=== PATIENT | male | born 1940 | race Caucasian/White ===

== ENCOUNTER → 2023-12-16 09:49 | Outpatient (REF) | payer OTHER, SELFPAY | LOC: RCS 09:49 | PROVIDERS: ATTENDING PHYSICIAN Internal Medicine Cardiovascular Disease; FAMILY PHYSICIAN Family Medicine | DX: I48.3 Typical atrial flutter (principal) | CPT/HCPCS: 93306 ==

== ENCOUNTER 2024-01-16 05:40 | Inpatient (IN) | payer OTHER, SELFPAY ==
[2024-01-16] VITALS (17 sets, daily range): BP systolic 119–153; BP diastolic 52–74; BMI 23.9; BMI 22.6
--- NOTE | 2024-01-16 03:33 | ED.GENMED ---
History of Present Illness
General
Chief Complaint: Chest Pain
Source: patient
Exam Limitations: none
Time Seen by Provider: 01/16/24 03:15
Travel History
Have you had any contact with someone who has COVID-19?: No
Do you have any symptoms of coronavirus? Fever > 100 degrees, chills, cough, shortness of breath, sore throat, loss of taste or smell, muscle aches, or headache?: No
Symptoms:: chest pain
History of Present Illness
History of Present Illness:
84 YO M with a PMH of ablation x <10 years ago, HTN, and HLD that presents to the ED with complaints of left sided chest pain that awoke him from sleep at 1:30 a.m. He describes the pain as sharp. Pt was given ASA and Nitroglycerin on his way here.
He also mentioned he had Pepto-Bismol. His pain was originally a 10/10, and is now a 0-1/10. Pt reports associated radiation of pain to his upper back. Pt reports he just got back from a 4 hour car ride today. Recently had COVID 10 days ago per
nurse. Pt is on Eliquis.
Denies SOB, N,V, diarrhea, and diaphoresis. Denies calf pain. Denies overexerting himself in the last few days.
Past History
Past History
ED Past Medical History: GERD
ED Past Surgical History: Other (Nasal polypectomy )
Social History
Tobacco: Former smoker (Quit in the 1960s)
Alcohol: Occasional
Personal:
Living: with family
Family History
Family History: Negative Diabetes, Hypertension or CAD
Review of Systems
Review of Systems
Allergies reviewed?: Yes
Constitutional: Reports no symptoms
EENT: Reports no symptoms
Respiratory: Reports no symptoms
Cardiac: Reports chest pain
ABD/GI: Reports no symptoms
: Reports no symptoms
Skin: Reports no symptoms
Neurological: Reports no symptoms
Phy Exam
Physical Exam
Physical Exam:
Bradycardic, Normal S1 and S2
Breath sounds are clear and equal B/L
(-) Abdominal pain
General Physical Exam
General Presentation: well appearing
General age: appears stated age
General Skin: warm and dry
General Habitus: normal
General Mental: alert
General Hydration: appears well hydrated
Cardiovascular Exam
Cardiovascular Exam: regular rate/rhythm and bradycardia
Pulmonary Exam
Pulmonary Exam: lungs clear and no respiratory distress
Neurological Exam
Neurological Exam: alert and oriented x3
Scores
Heart Score for Chest Pain Patients
STEMI patient?: Not applicable
Course
Orders/Labs/Results
Orders:
Orders
01/16/24 03:14
Electrocardiogram (*1) Urgent
Reason for Study: Other
Other Reason for Exam: Respiratory Distress
Cardiac Monitoring- Treatment ONCE
EKG- Treatment ONCE
IV Insert/Care/Rem.- Treatment PRN
O2 Therapy [RESP] Urgent
Titrate/Wean O2 to maintain O2 sat greater than (%): 93
Special Instructions: TO MAINTAIN CONTINUOUS O2 SATS >/= 93%
Pulse Ox/cont/shift [RESP] Urgent
Quantity: 1
Special Instructions: continuous pulse ox
01/16/24 03:32
Complete Blood Count/With Diff Urgent
Comprehensive Metabolic Panel Urgent
NT-proBNP Urgent
PT/INR [Prothrombin Time] Urgent
Troponin I Urgent
01/16/24 03:56
CR Chest Portable - 1 View Urgent
Comment:
Reason For Exam: chest pain
Reason Study Needs to be Portable: Patient Unstable
If Reason is Other, explain: bradycardia
01/16/24 04:27
ECG [Electrocardiogram (*1)] Urgent
Reason for Study: Chest Pain
EKG- Treatment ONCE
01/16/24 04:29
Electrocardiogram (*1) Urgent
Reason for Study: Chest Pain
EKG- Treatment ONCE
01/16/24 04:37
Nitroglycerin Ointment [Nitro-Bid] 1 inch TOPICAL NOW STA
Abnormal Lab Results
01/16/24
03:32
RBC 4.21 L 10^6/uL
(4.70-6.10)
Hgb 12.6 L g/dL
(13.0-18.0)
Hct 37.1 L %
(39.0-52.0)
Abs Immat Gran (auto) 0.1 H 10^3/uL
(0-0.05)
Absolute Monos (auto) 0.7 H 10^3/uL
(0.1-0.6)
Immature Gran % 0.9 H %
(0-0.5)
Lymphocytes % 19.1 L %
(20.5-51.1)
BUN 24 H mg/dl
(9-20)
Glucose 117 H mg/dl
(70-99)
01/16/24 03:32
01/16/24 03:32
Vital Signs
Initial and Last Documented VS:
Initial Vital Signs
Pulse
42
01/16/24 03:14
Last Documented Vital Signs
Temp Pulse Resp BP Pulse Ox
97.9 F 45 15 133/65 99
01/16/24 03:15 01/16/24 04:45 01/16/24 04:45 01/16/24 04:42 01/16/24 04:45
MDM/Problems Addressed
Differential Diagnosis Includes:
STEMI vs. NSTEMI, Pericarditis, Unstable vs. stable angina, AFIB/Flutter, Aortic dissection,
Chronic conditions affecting care:
Hypertension, Hyperlipidemia, Ablation X <10 years ago per patient
Chronic conditions affecting care: HTN
*Critical Care Note
Total Time (30-74mins, 75-104mins- exclusive of procedures): Not Applicable
ED Attending Note
-
Portions of this chart may have been created with voice recognition software.� Occasional wrong word or��sound alike� substitutions may have occurred due to the inherent limitations of voice recognition software.
Discharge Plan
Departure
Patient Disposition: Admit
Date of Disposition: 01/16/24
Time of Disposition: 04:36
Admit to: Telemetry
Presentation/result/management discussed w/ accepting MD/DO: Hospitalist
Discharge Problem:
Atrial fibrillation with slow ventricular response, Chest pain
Prescriptions:
No Action
omeprazole magnesium [Prilosec OTC] 20 MG tablet,delayed release (DR/EC)
20 mg PO DAILY
[id number] [Krill Oil ([place] 3 and 6)] 1 EACH capsule
1,000 mg PO DAILY
multivitamin [Daily Vitamin] 1 EACH tablet
1 ea PO DAILY
coenzyme Q10 60 MG capsule
100 mg PO DAILY
apixaban [Eliquis] 5 MG tablet
5 mg PO BID
calcium carbonate (bulk) [Coral Calcium] 1 GM powder
250 mg PO DAILY
diltiazem HCl 120 MG capsule,extended release 24hr
120 mg PO DAILY
magnesium 200 MG tablet
125 mg PO DAILY
Fax Oil
4 tsp PO DAILY
Tart Palomares
465 mg PO DAILY
sucralfate [Carafate] 1 gram tablet
1 g PO ACHS Qty: 60 0RF
Referrals:
UNKNOWN - PT NOT,INTERVIEWE [Family Provider] -
Interventions
Interventions:
*Risk Screen - Suicide Last Done: 01/16/24 03:15
*General Assessment Last Done: 01/16/24 03:15
*Neglect/Abuse Screening Last Done: 01/16/24 03:15
ED- Fall Risk Assessment Last Done: 01/16/24 03:15
*ED COVID-19 Vaccine History Last Done: 01/16/24 03:15
ED- Cardiac Assessment Last Done: 01/16/24 04:41
Discharge Date and Time
Print Language: BRITISH
[2024-01-16 03:41] LABS: % Basophils 0.1 % (0-2); % Eosinophils 2.3 % (0-6); % Immature Granulocytes 0.9 % (0-0.5); % Lymphocytes 19.1 % (20.5-51.1); % Monocytes 8.2 % (1.7-9.3); % Neutrophils 69.4 % (42.2-75.2); Absolute Eosinophils 0.2 10^3/uL (0-0.7); Absolute Immature Granulocytes 0.1 10^3/uL (0-0.05); Absolute Lymphocytes 1.7 10^3/uL (1.2-3.4); Absolute Monocytes 0.7 10^3/uL (0.1-0.6); Hematocrit 37.1 % (39.0-52.0); Hemoglobin 12.6 g/dL (13.0-18.0); Mean Corpuscular Hgb 29.9 pg (27.0-31.0); Mean Corpuscular Volume 88.1 fL (80.0-94.0); Mean Platelet Volume 10.2 fL (7.4-10.4); Nucleated Red Blood Cells % 0 % (-); Platelet Count 227 10^3/uL (130-400); Red Blood Cell Count 4.21 10^6/uL (4.70-6.10); Red Cell Dist. Width 13.9 % (11.5-14.5); White Blood Cell Count 8.7 10^3/uL (4.8-10.8)
[2024-01-16 03:55] LABS: INR 1.11; PT 14.1 Sec (11.4-14.6)
[2024-01-16 04:02] LABS: ALT (SGPT) 21 U/L (0-50); AST (SGOT) 30 U/L (17-59); Albumin 3.8 g/dl (3.5-5.0); Alkaline Phosphatase 65 U/L (38-126); Blood Urea Nitrogen 24 mg/dl (9-20); Calcium 9.2 mg/dl (8.4-10.2); Carbon Dioxide 29 mmol/L (22-30); Chloride 105 mmol/L (98-107); Estimated Creatinine Clearance 65 ml/min; Glucose 117 mg/dl (70-99); Potassium 4.4 mmol/L (3.5-5.1); Sodium 139 mmol/L (135-145); Total Bilirubin 0.4 mg/dl (0.2-1.3); Total Protein 6.4 g/dl (6.3-8.2); eGFR > 60.00
[2024-01-16 04:13] LABS: Troponin I < 0.012 ng/ml
[2024-01-16 04:31] LABS: NT-proBNP 1210 pg/ml
[2024-01-16] MEDS: NITRO-BID 1 INCH TOPICAL (04:42)
--- NOTE | 2024-01-16 05:09 | HPS.HSE ---
Addendum entered and electronically signed by Dillon Suarez MD 01/16/24 13:41:
CXR
1. Mild acute interstitial cardiogenic pulmonary edema.
2. Mild cardiomegaly.
3. Severe calcific atherosclerotic plaque in the thoracic aorta.
Addendum entered and electronically signed by Dillon Suarez MD 01/16/24 06:21:
HR intermittently dropping to mid 30, asymptomatic while resting
- await [facility] card evaluation
- Level of care upgrade to inpatient and IVU( Bed available)
Original Note:
Family Physician
-
Family Physician: INTERVIEWE UNKNOWN - PT NOT
Chief Complaint
-
CP
History of Present Illness
HPI
84M HX ablation , HTN , HLD , [facility] EMS an seen at ER for evaluation of CP and slow HR
Current CP
- he woke up with Lt sided sharp CP
- Initially pain was 10/10,
- On NTP - still CP 5/10
- associated radiation of pain to Lt upper back
- had COVID 10 days ago per nurse
- Received ASA and Nitroglycerin on his way
- Reports lightheaded on and off fo about 4 weeks
- No recent increase in Diltiazem
Note HR is in 40s and known HX A Fib/ Fluteer
Remote HC ablation
P card; Dr Montanez/ [facility]
Medical History
Past Medical History
Past Medical History: Reports Arrhythmia (A Fib s/p ablation )
Past Surgical History: Reports Cardiac (ablation )
Social History
Tobacco: Former Smoker (Quit in the 1960s))
Alcohol: Occasional
Personal:
Living: With Family
Family History
Family History: Not pertinent
Allergies / Home Medications
Allergies reflects when Allergies were last updated in [employer].
Home Medications with original date entered in [employer]
Allergy/Medication List:
Allergies
Allergy/AdvReac Type Severity Reaction Status Date / Time
iodine [Iodine] Allergy Hives Verified 01/16/24 03:13
Home Medications
krill oil 1,000 mg-om3 130 mg-dha 40 mg-epa 80 [id number]-[id number]-bmj-astax cap (Krill Oil ([place] 3 and 6)) 1,000 mg PO DAILY 08/28/09
omeprazole magnesium 20 mg tablet,delayed release (Prilosec OTC) 20 mg PO DAILY 08/28/09
apixaban 5 mg tablet (Eliquis) 5 mg PO BID 03/21/15
coenzyme Q10 60 mg capsule 100 mg PO DAILY 03/21/15
multivitamin (Daily Vitamin tablet) 1 ea PO DAILY 03/21/15
Fax Oil 4 tsp PO DAILY 03/22/15
Tart Palomares 465 mg PO DAILY 03/22/15
calcium carbonate (bulk) (Coral Calcium powder) 250 mg PO DAILY 03/22/15
diltiazem HCl 120 mg capsule,extended release 24 hr 120 mg PO DAILY 03/22/15
magnesium 200 mg tablet 125 mg PO DAILY 03/22/15
sucralfate 1 gram tablet (Carafate) 1 g PO ACHS #60 tabs 07/26/23
Review of Systems
-
Constitutional: Reports No Symptoms
EENT: Reports No Symptoms
Respiratory: Reports No Symptoms
Cardiac: Reports Chest Pain; Denies Palpitations or Syncope
Abdomen/GI: Reports No Symptoms
: Reports No Symptoms
Musculoskeletal: Reports No Symptoms
Skin: Reports No Symptoms
Neurological: Reports No Symptoms
Endocrine: Reports No Symptoms
Hematologic/Lymphatic: Reports No Symptoms
Psych: Reports No Symptoms
Physical Exam
Vital Signs
Vital Signs
Temp Pulse Resp BP Pulse Ox
97.9 F 43 18 129/74 100
01/16/24 03:15 01/16/24 05:00 01/16/24 05:00 01/16/24 05:00 01/16/24 05:00
Physical Exam
General: No Apparent Distress, Comfortable and Conversant
HEENT: NormoCephalic, Anicteric and Moist mucous membranes
Respiratory: Clear
Cardiac: S1/S2 and Bradycardia
Breast: Deferred by me
GI: Soft, Non Tender, Non Distended and Normal Bowel Sounds
Genito-urinary: Deferred by me
Musculoskeletal: No Edema
Skin: Warm and Dry
Neuro: AO x 3
Psych: Calm
Laboratory Results
-
01/16/24 03:32
01/16/24 03:32
Laboratory Results
PT 14.1 Sec (11.4-14.6) 01/16/24 03:32
INR 1.11 01/16/24 03:32
Total Bilirubin 0.4 mg/dl (0.2-1.3) 01/16/24 03:32
AST 30 U/L (17-59) 01/16/24 03:32
ALT 21 U/L (0-50) 01/16/24 03:32
Alkaline Phosphatase 65 U/L (38-126) 01/16/24 03:32
Troponin I < 0.012 ng/ml 01/16/24 03:32
Data Reviewed
-
Medical Tests (Nuc Med, Echo, EKG etc): Report Reviewed by me
Lab Data: Labs Reviewed by me
Impression/Plan
-
Reviewed VS: HR 35-45 BP 120/50 - 133/65
Data
Hgb 12.6 is at baseline
BUN 24
Nl Cr
TPNI < 0.012
pro BNP 1210
Pending final CXR report :
01/16/24 EKG report
ATRIAL FIBRILLATION WITH SLOW VENTRICULAR RESPONSE
MINIMAL VOLTAGE CRITERIA FOR LVH, MAY BE NORMAL VARIANT ( R in aVL )
ABNORMAL ECG
WHEN COMPARED WITH ECG OF 16-JAN-2024 03:16,
ATRIAL FIBRILLATION HAS REPLACED ATRIAL FLUTTER
07/26/23 EKG report
ATRIAL FLUTTER
MODERATE VOLTAGE CRITERIA FOR LVH, MAY BE NORMAL VARIANT ( R in aVL ,
[place]She[place] )
NONSPECIFIC ST AND T WAVE ABNORMALITY
ABNORMAL ECG
WHEN COMPARED WITH ECG OF 22-MAR-2015 07:34,
NO SIGNIFICANT CHANGE WAS FOUND
ECHO 12/16/23
LVEF 64
mil/nod MR
mld/mod AR
mildly dilated RV with preserved systolic function
NO PRIOR hospitalist admission:
ASSESSMENT & PLAN
Pending Rx reconciliation
Acute Lt sided CP with radiation to Lt back
Almost CP free now s/p 4 baby ASA and SL Nitroglycerin Enroute
NEG first TPNI
Abn EKG with NOS ST and T
- cont. Eliquis
- start NTP
- Trend TPNI and EKG
- [facility] card consult
Slow AF with VR mid 40s on LEAD CARGOMAN Diltazem
Normotensive
on Diltiazem
P card; Dr Montanez
- No recent increase in Diltiazem
- check TSH
- Held Diltiazem and observe HR
- cont LEAD CARGOMAN Eliquis
- TLM monitor
- fall precaution
- await [facility] card eval
GERD
- on PO PPI
DVT Px: LEAD CARGOMAN Eliquis
Code: Full code
Obs TLM
--- NOTE | 2024-01-16 05:32 | EDRN ---
Pt. had just previously reported to admitting MD that his chest pain still remains at a 4-5/10, unchanged after nitro. paste. Repeat trop. ordered. When RN entered room to draw troponin, at approximately 05:22, pt. stated, 'see now I don't feel that
chest pain while I'm lying here. It comes and goes'.
[2024-01-16 05:53] LABS: TSH 1.31 uIU/ml (0.47-4.68)
[2024-01-16 06:09] LABS: Troponin I < 0.012 ng/ml
--- NOTE | 2024-01-16 06:18 | EDRN ---
Addendum entered by Dolores Gonzalez RN 01/16/24 06:24:
engineer technician also spoke w/ admitting, per Charge, pt.'s admit to change to IVU as he is severely bradycardic at times.
Original Note:
Pt. continues to intermittently become bradycardic w/ HR ranging anywhere from 32-59. Pt. is asymptomatic, denies lightheadedness/dizziness. RN spoke w/ Dr. Garvin who is aware and is okay w/ current Tele admit.
[2024-01-16] MEDS: PROTONIX 40 MG PO (09:15)
[2024-01-16] MEDS: NITRO-BID 0.5 INCH TOPICAL (09:15)
[2024-01-16] MEDS: ELIQUIS 5 MG PO ×2 (09:15→19:45)
[2024-01-16] MEDS: TYLENOL 650 MG PO ×2 (09:34→15:21)
--- NOTE | 2024-01-16 10:50 | W.PN.UPDATE ---
Update Note
Progress Note Update
Non-billable addendum (H&P submitted todays date @ 5AM)
Patient with another episode of chest pain while resting. Kassandra, 02/15, nonradiating along left chest.
He reports similar episodes at times with GI indigestion but some times without relation to food
Nitro paste in place
HR 55 to 60
no SOB or other complaints
Assessment:
Acute Lt sided CP
- recurrent, will continue monitor if related to food or not
- continue ASA
- continue Nitro paste, add SL nitro tabs
- doubt PE with Eliquis (he is compliant)
- trend trops; so far negative.
- consider stress test in AM; [facility] cards consulted
HX of Afib with hx of ablation
Slow HR
- could be related to indigestion/pain (vagal mediated) vs med effect (Diltiazem)
- hold CCB
- monitor Tele
- TSH normal
- continue Eliquis
Chronic indigestion
GERD
- continue PPI
- may need prn TUMS
DVT ppx: Eliquis
Code: Full
--- NOTE | 2024-01-16 12:19 | CON.CAR ---
Consultation
Consultation Request
Date/Time Consultation Requested: 01/16/24
Date/Time Consultation Performed: 01/16/24
Requesting Provider: Katiuska
Performing Provider: Kristen
Reason for Consultation: Chest pain, bradycardia
Medical History
-
Chief Complaint: chest pain
History of Present Illness:
84-year-old man past medical history as below who presented through [place] emergency department last evening for evaluation of left-sided chest discomfort. Tells me that he developed left this sharp chest discomfort which awoke him from sleep.
He has had similar discomfort in the past thought to be acid reflux however this pain persisted for at least several hours and therefore he called 911. Tells me that with sublingual nitro trial glycerin chest discomfort subsided. ECG on admission
was nonischemic appearing however there was concern given slow ventricular response in atrial fibs/flutter insole pads were placed on the patient and he was admitted to the IVU. Reported subsequent chest discomfort and nitroglycerin patch was
placed. Of note serial troponins have been undetectable.
Discussed with patient and family at bedside. He is currently resting comfortably and asymptomatic without further chest discomfort. No shortness of breath no lower extremity edema. No lightheadedness or dizziness and no syncope despite
bradycardia.
We reviewed that Dr. Montanez has been following him for bradycardia and prior outpatient monitors had average heart rate in the 50s as we are seeing here. Recent echo was unremarkable. And it seems that he has been reporting this atypical chest
discomfort in the past and was thought to be acid reflux.
Patient reports that he had COVID infection approximately 2 weeks ago, we discussed that some of the chest discomfort could be related to coughing or residual inflammation as he is recovering from this illness.
PMHx:
AFib/flutter s/p flutter ablation (2014)
Chronic OAC
HTN
HLD
GERD
Recent COVID infx
Past Medical History
Past Medical History: Other (as above)
Past Surgical History: Other (as above)
Social History
Tobacco: Former Smoker
Family History
Family History: Reviewed & Not Pertinent
Allergies / Home Medications
Allergy/AdvReac Type Severity Reaction Status Date / Time
iodine [Iodine] Allergy Hives Verified 01/16/24 09:51
�Medication �Instructions �Recorded �Confirmed �Type
krill oil 1,000 mg-om3 130 mg-dha 1,000 mg PO DAILY 08/28/09 01/16/24 History
40 mg-epa 80 xs-tl4-msm-astax cap
(Krill Oil ([place] 3 and 6))
omeprazole magnesium 20 mg 20 mg PO DAILY 08/28/09 01/16/24 History
tablet,delayed release (Prilosec
OTC)
apixaban 5 mg tablet (Eliquis) 5 mg PO BID 03/21/15 01/16/24 History
coenzyme Q10 60 mg capsule 100 mg PO DAILY 03/21/15 01/16/24 History
multivitamin (Daily Vitamin tablet) 1 ea PO DAILY 03/21/15 01/16/24 History
Tart Palomares 465 mg PO DAILY 03/22/15 01/16/24 History
diltiazem HCl 120 mg 120 mg PO DAILY 03/22/15 01/16/24 History
capsule,extended release 24 hr
saw palmetto 160 mg capsule 320 mg PO DAILY 01/16/24 01/16/24 History
Review of Systems
-
History Source: Patient and Family
All other systems: Negative unless noted
Physical Exam
Vital Signs
Temp Pulse Resp BP Pulse Ox
97.6 F 51 20 140/72 97
01/16/24 12:11 01/16/24 10:00 01/16/24 12:11 01/16/24 07:00 01/16/24 12:11
Lab Results
01/16/24 03:32
01/16/24 03:32
Troponin I Cancelled 01/16/24 13:57
Zdx-F-Gugksnrsktp Pept 1210 pg/ml 01/16/24 03:32
Physical Exam
General: Well Developed
HEENT: Normocephalic
Respiratory: Clear
Cardiac: S1/S2 and Irregular Rhythm
GI: Soft
Skin: Warm and Dry
Neuro: Awake and Alert
Psych: Calm
Impression / Plan
-
Project Archivist: Montanez
Assessment:
Atypical chest pain
AFib/flutter s/p flutter ablation (2014)
Chronic OAC
HTN
HLD
GERD
Recent COVID infx
Plan:
-Presenting with sharp left-sided chest discomfort which is nonexertional, this is atypical chest pain by definition
-ECG nonischemic appearing and troponins have been serially undetectable
-We discussed ischemic evaluation with stress testing either inpatient versus outpatient and agreed to proceed with pharmacologic nuclear stress test in the a.m. to further risk stratify him. I explained that in the absence of a high risk stress
test I would favor medical management.
-In regards to his bradycardia, it seems that he has longstanding atrial fibrillation/atrial flutter with bradycardic response
-Most recent outpatient monitoring analyst from October 2023 showed heart rate range 29-114 bpm with average of 59 bpm and no significant pauses.
-Plan to stop diltiazem given bradycardia here
-Start amlodipine in its place
-Monitor on telemetry overnight
Data Reviewed
-
EKG: Tracing Personally Visualized and interpreted
Radiology: Image Personally Visualized and interpreted
Medical Tests (Nuc Med, Echo etc): Report Reviewed by me
Labs: Labs Reviewed by me
Old Records: Reviewed
[2024-01-16 13:07] LABS: Troponin I < 0.012 ng/ml
--- NOTE | 2024-01-16 22:12 | PTCARENOTE ---
Pt received start of shift, HR aflutter/fib 40s-50s. Pt assisted to bathroom, small BM. Pt updated on plan of care, informed of NPO status at midnight. Pt states understanding. Pt denies any CP, SOB, or lightheadedness dizziness at this time.
Informed to notify RN if any changes. call drew within reach.
[2024-01-17 04:31] VITALS: BMI 22.4
[2024-01-17 04:33] VITALS: BP 144/75
[2024-01-17 05:13] LABS: Hematocrit 39.6 % (39.0-52.0); Hemoglobin 13.5 g/dL (13.0-18.0); Mean Corp Hgb Conc. 34.1 g/dL (33.0-37.0); Mean Corpuscular Hgb 29.9 pg (27.0-31.0); Mean Corpuscular Volume 87.6 fL (80.0-94.0); Mean Platelet Volume 10.3 fL (7.4-10.4); Platelet Count 231 10^3/uL (130-400); Red Blood Cell Count 4.52 10^6/uL (4.70-6.10); Red Cell Dist. Width 13.7 % (11.5-14.5); White Blood Cell Count 7.8 10^3/uL (4.8-10.8)
[2024-01-17 05:39] LABS: Blood Urea Nitrogen 18 mg/dl (9-20); Calcium 9.5 mg/dl (8.4-10.2); Carbon Dioxide 28 mmol/L (22-30); Chloride 104 mmol/L (98-107); Estimated Creatinine Clearance 63 ml/min; Glucose 98 mg/dl (70-99); HDL Cholesterol 41 mg/dl; LDL Cholesterol, Calculated 103 mg/dl; Potassium 4.7 mmol/L (3.5-5.1); Sodium 139 mmol/L (135-145); Total Cholesterol 169 mg/dl (50-199); Triglyceride 127 mg/dl (10-149); Very Low Density Lipoprotein 25 mg/dl (0-30); eGFR > 60.00
[2024-01-17 08:00] VITALS: BP 165/70
[2024-01-17] MEDS: PROTONIX 40 MG PO (08:19)
[2024-01-17] MEDS: ELIQUIS 5 MG PO (08:19)
--- NOTE | 2024-01-17 09:50 | PTCARENOTE ---
Complete assessment done and noted, Pt denies any chest discomfort this am. HR AFib/Aflutter on monitor. Pt kept NPO for Lexiscan stress test this morning. Pt steady on feet, AM done this am prior to going to cardiac services.
[2024-01-17] MEDS: LEXISCAN 0.400000000000000022 MG IV (10:25)
--- NOTE | 2024-01-17 10:45 | W.PN.CARDCBS ---
Addendum entered and electronically signed by Alla Oconnor PA-C 01/17/24 14:57:
Talked with patient in room and reviewed stress test results. Also called an updated patient's daughter, Roxann, with results. Patient is stable for d/c to home.
Original Note:
Today's Communication / Plan
-
Stable cardiology status for discharge if stress test is okay
Diltiazem has been discontinued and Norvasc started
Blood pressure remains elevated and will need to be followed as an outpatient
Impression / Plan
-
Prism Measurer: Lisseth
Assessment:
Atypical chest pain
Indeterminate troponins
AFib/flutter s/p flutter ablation (2014)
Chronic OAC
Bradycardia
HTN
HLD
GERD
Recent COVID infx
Plan:
Chest pains have resolved
Troponins are indeterminate
Will check Lexiscan sestamibi stress test
He has longstanding atrial fibrillation/atrial flutter with bradycardic response
lunchroom monitor from October 2023 showed heart rate range 29-114 bpm with average of 59 bpm and no significant pauses.
Diltiazem has been stopped and Norvasc started
Blood pressure remains elevated and may need eventual antihypertensive medication this should be followed closely as an output
Stable cardiology status for discharge if stress test is okay
Progress Note - Prism Measurer
Subjective
Date of Service: January 17, 2024
No complaints.
Objective
Labs:
01/17/24 04:40
01/17/24 04:40
Labs
Hgb 13.5 g/dL (13.0-18.0) 01/17/24 04:40
Hct 39.6 % (39.0-52.0) 01/17/24 04:40
Plt Count 231 10^3/uL (130-400) 01/17/24 04:40
PT 14.1 Sec (11.4-14.6) 01/16/24 03:32
INR 1.11 01/16/24 03:32
Sodium 139 mmol/L (135-145) 01/17/24 04:40
Potassium 4.7 mmol/L (3.5-5.1) 01/17/24 04:40
BUN 18 mg/dl (9-20) 01/17/24 04:40
Creatinine 0.9 mg/dL (0.7-1.3) 01/17/24 04:40
Glucose 98 mg/dl (70-99) 01/17/24 04:40
Troponins
01/16/24 01/16/24 01/16/24
03:32 05:29 07:57
Troponin I < 0.012 < 0.012 Cancelled
01/16/24 01/16/24 01/16/24
10:57 12:31 13:57
Troponin I Cancelled < 0.012 Cancelled
Vital Signs and I&O:
Vital Signs
Temp Pulse Resp BP Pulse Ox
97.9 F 65 18 165/70 97
01/17/24 07:59 01/17/24 08:00 01/17/24 07:59 01/17/24 08:00 01/17/24 09:43
Vital Signs
Temp Pulse Resp BP Pulse Ox
97.9 F 65 18 165/70 97
01/17/24 07:59 01/17/24 08:00 01/17/24 07:59 01/17/24 08:00 01/17/24 09:43
Intake & Output
01/15/24 01/16/24 01/17/24 01/18/24
06:59 06:59 06:59 06:59
Intake Total 970 / 970
Output Total 1175 / 1175
Balance -205 / -205
Physical Exam
Physical Exam
General: Well developed, well nourished in NAD.
Neck: Supple, no JVD, HJR, carotids +2 B/L, no bruits bilaterally.
Heart: Non displaced PMI, RRR, no murmurs, No S3, S4, no rubs.
Lungs: Clear to auscultation bilaterally, no wheeze, rhonchi, rubs bilaterally,
normal expiratory phase.
Extremities: No clubbing, cyanosis or edema bilaterally.
Neuro: Grossly nonfocal, awake, alert and oriented x3.
[2024-01-17] MEDS: NORVASC 5 MG PO (12:14)
[2024-01-17 12:16] VITALS: BP 169/82
--- NOTE | 2024-01-17 12:43 | W.PN.HOSP.TC ---
Addendum entered and electronically signed by Kashmir Ortega MD 01/17/24 15:02:
Notified by cardiology that patient stress test negative. Patient is currently feeling better and wants to go home. Will discharge patient home with outpatient follow-up
Time of discharge 38 minutes
Original Note:
Today's Communication/Plan
-
monitor vitals
see plan
stress test today
on eliquis
started on amlodipine
dc diltiazem
monitor BP closely
Assessment / Plan
Assessment / Plan
General: No Apparent Distress, Comfortable and Conversant
HEENT: NormoCephalic, Anicteric and Moist mucous membranes
Respiratory: Clear
Cardiac: S1/S2 and Bradycardia
GI: Soft, Non Tender, Non Distended and Normal Bowel Sounds
Musculoskeletal: No Edema
Neuro: AO x 3
Psych: Calm
Acute left-sided chest pain
Chest pain resolved
Troponin are indeterminate
Nitro
Reports compliance with Eliquis
Cardiology following
Stress test today
History of A-fib/a flutter with history of ablation
Family with a flutter with bradycardia
Diltiazem discontinued by cardiology
TSH normal
Continue Eliquis
Hypertension
Since diltiazem discontinued, now started amlodipine
Patient is aware to check his blood pressure twice a day and keep a log and follow-up with primary care provider for blood pressure medication titration
Chronic indigestion
GERD
Continue PPI
DVT prophylaxis
Eliquis
Full code
Anticipated Discharge: Within 24 hours
Subjective/Interval History
-
Date of Service: January 17, 2024
denies nausea
Objective Data
-
Labs:
Laboratory Results
01/17/24
04:40
WBC 7.8
Hgb 13.5
Hct 39.6
Plt Count 231
Sodium 139
Potassium 4.7
Chloride 104
Carbon Dioxide 28
BUN 18
Creatinine 0.9
Glucose 98
Calcium 9.5
Vital Signs:
Vital Signs
Temp Pulse Resp BP Pulse Ox
98.2 F 66 18 169/82 100
01/17/24 12:17 01/17/24 12:14 01/17/24 12:17 01/17/24 12:14 01/17/24 12:17
I&O
01/16/24 01/17/24 01/18/24
06:59 06:59 06:59
Intake Total 970 / 970
Output Total 1175 / 1175
Balance -205 / -205
--- NOTE | 2024-01-17 15:02 | W.DCSUMMARY ---
Discharge Summary
Discharge Data
Date of Admission: 01/16/24
Date of Discharge: 01/17/24
-
Pending Results: No
Hospital Course
84-year-old male with past medical history of A-fib with history of ablation, essential hypertension, chronic indigestion, GERD came to the hospital with acute left-sided chest pain. Patient was seen by cardiology throughout hospitalization.
Patient chest pain seems atypical in nature however given his medical history, cardiology wanted to do inpatient stress test. Inpatient stress test was done on 01/17/2024 which did not show any acute abnormality. Patient also had periods of
bradycardia for which diltiazem was discontinued by cardiology. Instead patient was started on amlodipine. On discharge he was instructed to check his blood pressure twice daily and to follow-up with primary care provider for further medication
titration. Patient chest pain resolved prior to discharge. Once patient symptoms resolved, he was then discharged home with instructions to follow-up with all his physicians outpatient.
Discharge Plan
-
Patient Disposition: Home (Routine Discharge)
Discharge Diagnosis/Procedures: Chest pain
Uncontrolled hypertension
Condition: Fair
Diet: As tolerated
Activity: As tolerated
Driving Restrictions: As prior to admission
Bathing Restrictions: None
Activity Restrictions/Additional Instructions:
Please check your blood pressure twice daily and keep log. Contact your primary care provider for further blood pressure medication titration.
Referrals:
Francisco J Montanez MD [Active] - 02/16/24 1:20 pm (You have an appt to see Dr. Montanez's physician surgical dental assistant, Tasha, at the [place] office on 02/16/24 at 1:20 PM. Please call [phone] if you need to reschedule.)
UNKNOWN - PT NOT,INTERVIEWE [Family Provider] - in less than 1 week
Additional Discharge Medication Instructions: -STOP taking Cardizem (diltiazem) due to slow heart rate at times.
-Start taking amlodipine 5 mg once a day as a replacement for Cardizem.
Prescriptions:
New
acetaminophen 325 mg Tablet
650 mg PO Q6HPRN PRN (Reason: mild pain/ fever>100.5F) Qty: 0 0RF
amlodipine 5 mg Tablet
5 mg PO DAILY Qty: 30 11RF
Continued
omeprazole magnesium [Prilosec OTC] 20 MG tablet,delayed release (DR/EC)
20 mg PO DAILY
Krill Oil ([place] 3 and 6) 1 EACH capsule
1,000 mg PO DAILY
multivitamin [Daily Vitamin] 1 EACH tablet
1 ea PO DAILY
coenzyme Q10 60 MG capsule
100 mg PO DAILY
Eliquis 5 MG tablet
5 mg PO BID
Tart Palomares
465 mg PO DAILY
saw palmetto 160 mg Capsule
320 mg PO DAILY
Discontinued
diltiazem HCl 120 MG capsule,extended release 24hr
120 mg PO DAILY
Discharge Orders:
Discharge Patient (As Directed); Ordered 01/17/24
Ordered By: Kashmir Ortega
Care Plan Goals
Care Plan Goals:
Problem: Readiness for enhanced knowledge related to diagnosis and treatment plan
Goal: Understand your diagnosis and treatment plan needs, including medications if applicable.
Instructions: Know your diagnosis, underlying causes and treatment plan options, including medications if applicable. Consult with your health care team to learn about your diagnosis and treatment plan, including medications if applicable.
Discharge Date and Time
Discharge Date/Time: 01/17/24 16:09
Print Language: [place]
--- NOTE | 2024-01-17 15:07 | CM ---
Chart reviewed. Patient is independent of ADLS, lives with his in a split level, 8-9 [address]OND, 0 DME. Plan is to return home.
[2024-01-17 15:23] VITALS: BP 138/72
--- NOTE | 2024-01-17 15:59 | PTCARENOTE ---
Pt cleared for discharge to home, Drop [employer] Up and PA in to see pt. Discharge orders reviewed with pt,and printed to take home. INT d/c'd. Pt changed, VSS. Pt brought to ground floor via wheelchair meeting his son now.
== END 2024-01-17 16:09 | disposition home or self-care (01) | DRG 313 ==
LOC: IVU 05:40
PROVIDERS: Internal Medicine; Internal Medicine Cardiovascular Disease; ADMITTING PHYSICIAN Internal Medicine; ATTENDING PHYSICIAN Internal Medicine; CONSULT PHYSICIAN Internal Medicine Cardiovascular Disease; EMERGENCY PHYSICIAN Emergency Medicine
PROC: 3E033HZ Introduction of Radioactive Substance into Peripheral Vein, Percutaneous Approach (ICD-10-PCS; 2024-01-17)
PROC: 4A12XM4 Monitoring of Cardiac Stress, External Approach (ICD-10-PCS; 2024-01-17)
DX: R07.89 Other chest pain (principal); I10 Essential (primary) hypertension; K21.9 Gastro-esophageal reflux disease without esophagitis; I48.91 Unspecified atrial fibrillation; E78.5 Hyperlipidemia, unspecified; K30 Functional dyspepsia; Z79.01 Long term (current) use of anticoagulants; Z87.891 Personal history of nicotine dependence; Z91.041 Radiographic dye allergy status; Z86.16 Personal history of COVID-19
CPT/HCPCS: 71045; 78452; 80048; 80053; 80061; 83036; 83880; 84443; 84484; 85025; 85027; 85610; 93005; 93017; 99285; A9500; J2785

== ENCOUNTER → 2024-04-26 10:58 | Outpatient (REF) | payer OTHER, SELFPAY | LOC: RAD 10:58 | PROVIDERS: ATTENDING PHYSICIAN Physician Assistant | DX: R06.02 Shortness of breath (principal) | CPT/HCPCS: 71046 ==

== ENCOUNTER → 2024-06-14 07:49 | Outpatient (REF) | payer OTHER, SELFPAY | LOC: RAD 07:49 | PROVIDERS: ATTENDING PHYSICIAN Physician Assistant; FAMILY PHYSICIAN Family Medicine | DX: I73.9 Peripheral vascular disease, unspecified (principal) | CPT/HCPCS: 93922; 93925 ==

== ENCOUNTER → 2024-09-04 08:02 | Outpatient (REF) | payer MEDICARE, SELFPAY | LOC: RAD 08:02 | PROVIDERS: ATTENDING PHYSICIAN Family Medicine; FAMILY PHYSICIAN Family Medicine | DX: R10.11 Right upper quadrant pain (principal) | CPT/HCPCS: 76700 ==

== ENCOUNTER → 2024-09-28 12:59 | Outpatient (REF) | payer MEDICARE, SELFPAY | LOC: RAD 12:59 | PROVIDERS: ATTENDING PHYSICIAN Family Medicine | DX: N28.1 Cyst of kidney, acquired (principal) | CPT/HCPCS: 74170; Q9967 ==